=== PATIENT | female | born 1960 | race Caucasian/White ===

== ENCOUNTER → 2017-10-03 | Outpatient (CLI) | payer MEDICARE, MEDICAID | END | disposition home or self-care (01) | LOC: LAB 09:25 | DX: E87.2 Acidosis (principal) ==

== ENCOUNTER → 2017-11-29 | Outpatient (CLI) | payer MEDICARE, MEDICAID ==
[2017-11-29 09:03] LABS: BASO # 0.1 10*3/uL (0.0-0.1); BASO % 0.7 % (0.0-1.0); EOS # 0.5 10*3/uL (0.0-0.4); HEMATOCRIT 41.9 % (37.0-47.0); HEMOGLOBIN 12.2 g/dl (12.0-16.0); LYMPH # 2.4 10*3/uL (1.3-4.4); LYMPH % 25.4 % (27.0-41.0); MEAN CELL VOLUME 90.9 fl (81.0-99.0); MEAN CORPUSCULAR HGB 26.5 pg (27.0-31.0); MEAN CORPUSCULAR HGB CONC 29.1 g/dl (33.0-37.0); MEAN PLATELET VOLUME 9.5 fl (9.6-12.3); MONO # 0.7 10*3/uL (0.1-1.0); MONO % 6.8 % (3.0-9.0); NEUT # 5.8 10*3/uL (2.3-7.9); NEUT % 61.6 % (47.0-73.0); PLATELET COUNT AUTOMATED 352 10*3/uL (130-400); RED BLOOD COUNT 4.61 10*6/uL (4.10-5.10); RED CELL DISTRI WIDTH 13.8 % (0-14.5); WHITE BLOOD COUNT 9.5 10*3/uL (4.8-10.8)
[2017-11-29 09:10] LABS: BILIRUBIN NEGATIVE (NEGATIVE); BLOOD 3+ (NEGATIVE); CLARITY SL CLOUDY (CLEAR); COLOR YELLOW (YELLOW); GLUCOSE 3+ (NEGATIVE); KETONE NEGATIVE (NEGATIVE); LEUKO ESTERASE 1+ (NEGATIVE); NITRITE NEGATIVE (NEGATIVE); PH 5.5 (5.0-9.0); SPECIFIC GRAVITY 1.015 (1.005-1.030); UROBILINOGEN 0.2 E.U./dl (0.2-1.0)
[2017-11-29 09:25] LABS: BACTERIA 3+; RBC TNTC rbc/hpf (0-2)
[2017-11-29 09:26] LABS: ALBUMIN 3.5 gm/dl (3.1-4.5); BUN 27 mg/dl (7-24); CHLORIDE 105 mmol/L (98-107); PHOSPHOROUS 3.7 mg/dL (2.5-4.9); SODIUM 138 mmol/L (136-145)
[2017-11-29 09:27] LABS: CREATININE 1.12 mg/dL (0.55-1.02)
[2017-11-30 11:06] LABS: CREATININE,URINE 45.4 mg/dL (Not Estab.); MICRO ALBUMIN/CRE RATIO 33.9 (0.0-30.0)
== END | disposition home or self-care (01) ==
LOC: LAB 08:09
PROVIDERS: Internal Medicine Nephrology
DX: N18.3 Chronic kidney disease, stage 3 (moderate) (principal); E87.2 Acidosis; E55.9 Vitamin D deficiency, unspecified

== ENCOUNTER → 2018-02-28 | Outpatient (CLI) | payer MEDICARE, MEDICAID ==
[2018-02-28 09:47] LABS: BASO # 0.1 10*3/uL (0.0-0.1); BASO % 0.7 % (0.0-1.0); EOS # 0.4 10*3/uL (0.0-0.4); HEMATOCRIT 40.1 % (37.0-47.0); HEMOGLOBIN 11.8 g/dl (12.0-16.0); LYMPH # 2.8 10*3/uL (1.3-4.4); MEAN CELL VOLUME 91.3 fl (81.0-99.0); MEAN CORPUSCULAR HGB 26.9 pg (27.0-31.0); MEAN CORPUSCULAR HGB CONC 29.4 g/dl (33.0-37.0); MEAN PLATELET VOLUME 9.9 fl (9.6-12.3); MONO # 0.7 10*3/uL (0.1-1.0); MONO % 6.8 % (3.0-9.0); NEUT # 6.3 10*3/uL (2.3-7.9); PLATELET COUNT AUTOMATED 254 10*3/uL (130-400); RED BLOOD COUNT 4.39 10*6/uL (4.10-5.10); RED CELL DISTRI WIDTH 14.3 % (0-14.5); WHITE BLOOD COUNT 10.3 10*3/uL (4.8-10.8)
[2018-02-28 09:59] LABS: BILIRUBIN NEGATIVE (NEGATIVE); BLOOD 3+ (NEGATIVE); CLARITY SL CLOUDY (CLEAR); COLOR YELLOW (YELLOW); GLUCOSE 2+ (NEGATIVE); KETONE NEGATIVE (NEGATIVE); LEUKO ESTERASE NEGATIVE (NEGATIVE); NITRITE NEGATIVE (NEGATIVE); PH 5.5 (5.0-9.0); UROBILINOGEN 0.2 E.U./dl (0.2-1.0)
[2018-02-28 10:14] LABS: BACTERIA 1+; EPITHELIAL CELLS 16-20; RBC TNTC rbc/hpf (0-2)
[2018-02-28 10:41] LABS: ALBUMIN 3.6 gm/dl (3.1-4.5); CREATININE 1.21 mg/dL (0.55-1.02); TOTAL PROTEIN 7.5 gm/dL (6.4-8.2)
== END | disposition home or self-care (01) ==
LOC: LAB 09:15 → CT 10:00
PROVIDERS: Urology
DX: I25.10 Atherosclerotic heart disease of native coronary artery without angina pectoris (principal); R31.9 Hematuria, unspecified; I51.7 Cardiomegaly; N28.9 Disorder of kidney and ureter, unspecified

== ENCOUNTER → 2018-05-08 | Outpatient (CLI) | payer MEDICARE, MEDICAID | END | disposition home or self-care (01) | LOC: RAD 09:55 | DX: N20.0 Calculus of kidney (principal); Z96.0 Presence of urogenital implants ==

== ENCOUNTER → 2018-05-15 | Outpatient (CLI) | payer MEDICARE, MEDICAID | END | disposition home or self-care (01) | LOC: CT 12:58 | DX: N20.0 Calculus of kidney (principal); K80.20 Calculus of gallbladder without cholecystitis without obstruction; K57.30 Diverticulosis of large intestine without perforation or abscess without bleeding; N26.1 Atrophy of kidney (terminal) ==

== ENCOUNTER → 2018-05-28 | Outpatient (CLI) | payer MEDICARE, MEDICAID | END | disposition home or self-care (01) | LOC: RAD 09:52 | DX: N20.0 Calculus of kidney (principal) ==

== ENCOUNTER → 2018-06-06 | Outpatient (CLI) | payer MEDICARE, MEDICAID ==
[2018-06-06 08:37] LABS: BILIRUBIN NEGATIVE (NEGATIVE); BLOOD TRACE-INTACT (NEGATIVE); CLARITY CLOUDY (CLEAR); COLOR YELLOW (YELLOW); GLUCOSE 3+ (NEGATIVE); KETONE TRACE (NEGATIVE); LEUKO ESTERASE 1+ (NEGATIVE); NITRITE NEGATIVE (NEGATIVE); PH 5.5 (5.0-9.0); UROBILINOGEN 0.2 E.U./dl (0.2-1.0)
[2018-06-06 08:48] LABS: BACTERIA 4+; WBC TNTC wbc/hpf (0-5)
[2018-06-06 08:49] LABS: BASO % 0.2 % (0.0-1.0); EOS # 0.1 10*3/uL (0.0-0.4); EOS % 1.1 % (1.0-4.0); HEMATOCRIT 36.2 % (37.0-47.0); HEMOGLOBIN 10.5 g/dl (12.0-16.0); LYMPH # 2.2 10*3/uL (1.3-4.4); LYMPH % 17.2 % (27.0-41.0); MEAN CELL VOLUME 88.9 fl (81.0-99.0); MEAN CORPUSCULAR HGB 25.8 pg (27.0-31.0); MEAN PLATELET VOLUME 9.2 fl (9.6-12.3); MONO # 0.5 10*3/uL (0.1-1.0); MONO % 4.2 % (3.0-9.0); NEUT # 9.8 10*3/uL (2.3-7.9); NEUT % 76.3 % (47.0-73.0); PLATELET COUNT AUTOMATED 409 10*3/uL (130-400); RED BLOOD COUNT 4.07 10*6/uL (4.10-5.10); RED CELL DISTRI WIDTH 14.3 % (0-14.5); WHITE BLOOD COUNT 12.9 10*3/uL (4.8-10.8)
[2018-06-06 09:15] LABS: ALBUMIN 2.8 gm/dl (3.1-4.5); CREATININE 1.64 mg/dL (0.55-1.02); POTASSIUM 4.5 mmol/L (3.5-5.1); THYROXINE (T4) TOTAL 9.2 ug/dl (4.8-13.9); TOTAL PROTEIN 7.4 gm/dL (6.4-8.2)
[2018-06-17 20:10] LABS: BUSHITE 0.01 ratio (0.00-3.00); CALCIUM OXALATE 2.66 ratio (0.00-6.00); CITRIC ACID (CITRATE) 51 mg/24 hr (320-1240); CREATININE, URINE 1048.8 mg/24 hr (800.0-1800.0); CREATININE, URINE 55.2 mg/dL (Not Estab.); MAGNESIUM, URINE 2.4 mg/dL (Not Estab.); MONOSODIUM URATE 1.12 ratio (0.00-4.00); OSMOLALITY, URINE 576 (300-900); SODIUM, URINE 165 (39-258); SODIUM, URINE 87 mmol/L (Not Estab.); STRUVITE 0.01 ratio (0.00-1.00); pH 24 HR URINE 5.2 (.)
== END | disposition home or self-care (01) ==
LOC: LAB 07:50
PROVIDERS: Nurse Practitioner Family
DX: N20.0 Calculus of kidney (principal)

== ENCOUNTER → 2018-06-10 | Outpatient (CLI) | payer MEDICARE, MEDICAID | END | disposition home or self-care (01) | LOC: US 12:41 | DX: N20.0 Calculus of kidney (principal); N32.89 Other specified disorders of bladder ==

== ENCOUNTER → 2018-09-24 | Outpatient (CLI) | payer MEDICARE, MEDICAID ==
[~2018-09-24] MED LIST: ACCU-CHEK AVIV1 EACH MC; ALLOPURINOL100 MG PO; CETIRIZINE HYDR10 MG PO; GLYBURIDE5 MG PO; GOOD NEIGHBOR150 MG PO; JARDIANCE25 MG PO; LISINOPRIL5 MG PO; METFORMIN HYDR500 MG PO; SIMVASTATIN10 MG PO; TRULICITY1.5 MG/0.5 SC
== END | disposition home or self-care (01) ==
LOC: CT 15:46
DX: N20.0 Calculus of kidney (principal); Z96.0 Presence of urogenital implants

== ENCOUNTER → 2018-10-04 | Outpatient (CLI) | payer MEDICARE, MEDICAID ==
[2018-10-04 10:33] LABS: BILIRUBIN NEGATIVE (NEGATIVE); BLOOD 3+ (NEGATIVE); CLARITY SL CLOUDY (CLEAR); COLOR YELLOW (YELLOW); GLUCOSE 2+ (NEGATIVE); KETONE NEGATIVE (NEGATIVE); LEUKO ESTERASE TRACE (NEGATIVE); NITRITE NEGATIVE (NEGATIVE); PH 5.5 (5.0-9.0); SPECIFIC GRAVITY <= 1.005 (1.005-1.030); UROBILINOGEN 0.2 E.U./dl (0.2-1.0)
[2018-10-04 10:35] LABS: BASO % 0.3 % (0.0-1.0); EOS # 0.4 10*3/uL (0.0-0.4); EOS % 4.3 % (1.0-4.0); HEMATOCRIT 29.9 % (37.0-47.0); HEMOGLOBIN 8.3 g/dl (12.0-16.0); LYMPH # 1.9 10*3/uL (1.3-4.4); LYMPH % 20.2 % (27.0-41.0); MEAN CELL VOLUME 86.2 fl (81.0-99.0); MEAN CORPUSCULAR HGB 23.9 pg (27.0-31.0); MEAN CORPUSCULAR HGB CONC 27.8 g/dl (33.0-37.0); MEAN PLATELET VOLUME 8.7 fl (9.6-12.3); MONO # 0.6 10*3/uL (0.1-1.0); MONO % 6.8 % (3.0-9.0); NEUT # 6.3 10*3/uL (2.3-7.9); NEUT % 67.7 % (47.0-73.0); PLATELET COUNT AUTOMATED 451 10*3/uL (130-400); RED BLOOD COUNT 3.47 10*6/uL (4.10-5.10); RED CELL DISTRI WIDTH 15.8 % (0-14.5); WHITE BLOOD COUNT 9.2 10*3/uL (4.8-10.8)
[2018-10-04 10:43] LABS: CREATININE 1.72 mg/dL (0.55-1.02); PHOSPHOROUS 4.1 mg/dL (2.5-4.9); POTASSIUM 4.5 mmol/L (3.5-5.1)
[2018-10-04 11:02] LABS: PTH INTACT 49.4 pg/mL (18.5-88.0); VITAMIN D, 25-HYDROXY 26.7 ng/mL (30-100)
[2018-10-04 11:04] LABS: RBC TNTC rbc/hpf (0-2); WBC 51-100 wbc/hpf (0-5)
[2018-10-04 11:05] LABS: BACTERIA 1+
[2018-10-05 10:05] LABS: CREATININE,URINE 42.7 mg/dL (Not Estab.); MICRO ALBUMIN/CRE RATIO 247.8 (0.0-30.0)
== END | disposition home or self-care (01) ==
LOC: LAB 09:53
PROVIDERS: Internal Medicine Nephrology
DX: N18.3 Chronic kidney disease, stage 3 (moderate) (principal); E87.2 Acidosis; E55.9 Vitamin D deficiency, unspecified

== ENCOUNTER → 2018-11-14 | Outpatient (CLI) | payer MEDICARE, MEDICAID | END | disposition home or self-care (01) | LOC: US 10:20 | DX: N20.0 Calculus of kidney (principal) ==

== ENCOUNTER → 2018-12-04 | Outpatient (CLI) | payer MEDICARE, MEDICAID | END | disposition home or self-care (01) | LOC: CT 12:47 | DX: N20.0 Calculus of kidney (principal); K80.20 Calculus of gallbladder without cholecystitis without obstruction; N28.89 Other specified disorders of kidney and ureter; K82.8 Other specified diseases of gallbladder; Z96.0 Presence of urogenital implants ==

== ENCOUNTER → 2019-07-17 | Outpatient (CLI) | payer MEDICARE, MEDICAID | END | disposition home or self-care (01) | LOC: CT 10:38 | DX: N20.0 Calculus of kidney (principal); K80.20 Calculus of gallbladder without cholecystitis without obstruction ==

== ENCOUNTER → 2020-01-27 | Outpatient (CLI) | payer MEDICARE, MEDICAID ==
[2020-01-27 08:29] LABS: BASO # 0.1 10*3/uL (0.0-0.1); BASO % 0.5 % (0.0-1.0); EOS # 0.5 10*3/uL (0.0-0.4); HEMATOCRIT 37.7 % (37.0-47.0); LYMPH # 2.3 10*3/uL (1.3-4.4); LYMPH % 25.2 % (27.0-41.0); MEAN CELL VOLUME 93.5 fl (81.0-99.0); MEAN PLATELET VOLUME 10.2 fl (9.6-12.3); MONO # 0.5 10*3/uL (0.1-1.0); MONO % 5.7 % (3.0-9.0); NEUT # 5.8 10*3/uL (2.3-7.9); NEUT % 63.2 % (47.0-73.0); PLATELET COUNT AUTOMATED 302 10*3/uL (130-400); RED BLOOD COUNT 4.03 10*6/uL (4.10-5.10); WHITE BLOOD COUNT 9.2 10*3/uL (4.8-10.8)
[2020-01-27 09:07] LABS: URIC ACID 4.8 mg/dL (2.6-6.0)
[2020-01-27 09:12] LABS: BILIRUBIN NEGATIVE (NEGATIVE); CLARITY CLEAR (CLEAR); COLOR YELLOW (YELLOW); GLUCOSE 2+ (NEGATIVE); KETONE NEGATIVE (NEGATIVE)
[2020-01-27 09:12] LABS: ALBUMIN 3.3 gm/dl (3.1-4.5); CREATININE 1.72 mg/dL (0.55-1.02); TOTAL PROTEIN 6.8 gm/dL (6.4-8.2)
[2020-01-27 09:13] LABS: BACTERIA 1+; BLOOD TRACE-LYSED (NEGATIVE); LEUKO ESTERASE NEGATIVE (NEGATIVE); NITRITE NEGATIVE (NEGATIVE); SPECIFIC GRAVITY 1.015 (1.005-1.030); UROBILINOGEN 0.2 E.U./dl (0.2-1.0)
[2020-01-27 09:48] LABS: PTH INTACT 48.1 pg/mL (18.5-88.0); VITAMIN D, 25-HYDROXY 41.3 ng/mL (30-100)
== END | disposition home or self-care (01) ==
LOC: LAB 07:17
PROVIDERS: Internal Medicine Nephrology; Nurse Practitioner Family
DX: I12.9 Hypertensive chronic kidney disease with stage 1 through stage 4 chronic kidney disease, or unspecified chronic kidney disease (principal); N18.3 Chronic kidney disease, stage 3 (moderate); D64.9 Anemia, unspecified; E13.22 Other specified diabetes mellitus with diabetic chronic kidney disease; E55.9 Vitamin D deficiency, unspecified; N20.0 Calculus of kidney; E78.5 Hyperlipidemia, unspecified; Z79.4 Long term (current) use of insulin

== ENCOUNTER → 2023-11-01 | Outpatient (CLI) | payer MEDICARE, MEDICAID | END | disposition home or self-care (01) | LOC: MAMMO 09:33 | PROVIDERS: ATTEND Nurse Practitioner Family | DX: N63.24 Unspecified lump in the left breast, lower inner quadrant (principal) ==

== ENCOUNTER → 2024-02-05 | Outpatient (CLI) | payer MEDICARE, MEDICAID ==
[~2024-02-05] MED LIST changes: +GLIPIZIDE10 M2 PO; +LANTUS100 UNIT/1 SQ; +ROSUVASTATIN CA10 MG PO
== END | disposition home or self-care (01) ==
LOC: US 09:36
PROVIDERS: ATTEND Nurse Practitioner Family
DX: N63.24 Unspecified lump in the left breast, lower inner quadrant (principal); R92.8 Other abnormal and inconclusive findings on diagnostic imaging of breast

== ENCOUNTER → 2024-02-11 | Day surgery (SDC) | payer MEDICARE, MEDICAID ==
[~2024-02-11] VITALS: Ht 157.4 cm; Wt 104.3 kg
[~2024-02-11] MED LIST changes: +Lidocaine Hydrochloride 2% 10 ML AMP IM ONE; +Midazolam Hydrochloride 2 MG/2 ML VIAL IV ONE; +PROPOFOL 200 MG/20 ML VIAL IV ONE; +Phenylephrine Hydrochloride 1 MG/10 ML SYRINGE IV ONE; +SODIUM CHLORIDE 0.9% 1,000 ML IV ONE
[2024-02-11 09:30] VITALS: BP 84/43
[2024-02-11 09:45] VITALS: BP 105/56
[2024-02-11 10:00] VITALS: BP 113/58
== END | disposition home or self-care (01) ==
LOC: SDC 02-07 08:45
PROVIDERS: ATTEND Surgery
DX: Z12.11 Encounter for screening for malignant neoplasm of colon (principal); K64.8 Other hemorrhoids; I12.9 Hypertensive chronic kidney disease with stage 1 through stage 4 chronic kidney disease, or unspecified chronic kidney disease; E11.22 Type 2 diabetes mellitus with diabetic chronic kidney disease; N18.9 Chronic kidney disease, unspecified; E11.319 Type 2 diabetes mellitus with unspecified diabetic retinopathy without macular edema; E78.00 Pure hypercholesterolemia, unspecified; Z86.010 Personal history of colon polyps; Z98.41 Cataract extraction status, right eye; Z98.42 Cataract extraction status, left eye; Z98.890 Other specified postprocedural states; Z79.4 Long term (current) use of insulin; Z79.899 Other long term (current) drug therapy; Z83.3 Family history of diabetes mellitus; Z82.49 Family history of ischemic heart disease and other diseases of the circulatory system
CPT/HCPCS: 00812; G0105

== ENCOUNTER 2024-12-24 02:42 | Emergency (ER) | payer MEDICARE, MEDICAID ==
[~2024-12-24] VITALS: Ht 167.6 cm; Wt 121.1 kg
[~2024-12-24 02:42] MED LIST changes: -Lidocaine Hydrochloride 2% 10 ML AMP IM ONE; -Midazolam Hydrochloride 2 MG/2 ML VIAL IV ONE; -PROPOFOL 200 MG/20 ML VIAL IV ONE; -Phenylephrine Hydrochloride 1 MG/10 ML SYRINGE IV ONE; -SODIUM CHLORIDE 0.9% 1,000 ML IV ONE
[2024-12-24] MEDS ORDERED: ASPIRIN, CHEWABLE 81 MG TAB PO ONE (02:55)
[2024-12-24] MEDS ORDERED: SODIUM BICARBO650 MG PO (02:57)
[2024-12-24] MEDS ORDERED: PIOGLITAZONE HC15 MG PO (02:57)
[2024-12-24] MEDS ORDERED: VITAMIN D250 MCG PO (02:58)
[2024-12-24] MEDS ORDERED: ASPIRIN CHEWABL81 MG PO (02:58)
[2024-12-24] MEDS ORDERED: IRON325 M1 PO (02:58)
[2024-12-24] MEDS ORDERED: FOLIC ACID0.8 M1 PO (02:59)
[2024-12-24] MEDS ORDERED: FISH OIL 1,201200 MG PO (02:59)
[2024-12-24] MEDS ORDERED: B12-FOLIC ACID1 EACH PO (03:00)
[2024-12-24 03:13] LABS: BASO % 0.2 % (0.0-1.0); EOS # 0.1 10*3/uL (0.0-0.4); EOS % 0.8 % (1.0-4.0); HEMATOCRIT 40.5 % (37.0-47.0); MEAN CORPUSCULAR HGB 30.3 pg (27.0-31.0); MEAN CORPUSCULAR HGB CONC 30.6 g/dl (33.0-37.0); MEAN PLATELET VOLUME 9.8 fl (9.6-12.3); MONO # 1.3 10*3/uL (0.1-1.0); MONO % 7.7 % (3.0-9.0); NEUT % 82.8 % (47.0-73.0); PLATELET COUNT AUTOMATED 232 10*3/uL (130-400); RED BLOOD COUNT 4.09 10*6/uL (4.10-5.10); RED CELL DISTRI WIDTH 12.6 % (0-14.5); WHITE BLOOD COUNT 16.9 10*3/uL (4.8-10.8)
[2024-12-24 03:36] LABS: POTASSIUM 5.1 mmol/L (3.4-5.1); TOTAL PROTEIN 7.1 gm/dL (6.0-8.0)
[2024-12-24] MEDS ORDERED: Dicyclomine Hydrochloride 20 MG/10 ML OSYR PO STA (03:53)
[2024-12-24] MEDS ORDERED: MG-AL HYDROXIDE/SIMETICONE 30 ML UDC PO STA (03:53)
[2024-12-24] MEDS ORDERED: Lidocaine Hydrochloride 15 ML UDC PO STA (03:53)
[2024-12-24] MEDS ORDERED: Pantoprazole Sodium 20 MG TAB PO ONE ×2 (04:45)
[2024-12-24] MEDS ORDERED: OMEPRAZOLE40 MG PO (05:22)
== END 2024-12-24 05:30 | disposition home or self-care (01) ==
LOC: ED 02:42
PROVIDERS: Internal Medicine
DX: K21.9 Gastro-esophageal reflux disease without esophagitis (principal); R07.89 Other chest pain; I12.9 Hypertensive chronic kidney disease with stage 1 through stage 4 chronic kidney disease, or unspecified chronic kidney disease; E11.22 Type 2 diabetes mellitus with diabetic chronic kidney disease; N18.9 Chronic kidney disease, unspecified; N17.9 Acute kidney failure, unspecified; E11.65 Type 2 diabetes mellitus with hyperglycemia; D72.829 Elevated white blood cell count, unspecified; Z79.82 Long term (current) use of aspirin; Z79.4 Long term (current) use of insulin; Z79.899 Other long term (current) drug therapy; Z98.890 Other specified postprocedural states

== ENCOUNTER 2025-01-06 17:02 | Observation (INO) | payer MEDICARE, MEDICAID ==
[~2025-01-06] VITALS: Ht 160 cm; Wt 110.2 kg
[~2025-01-06 17:02] MED LIST changes: +ASPIRIN CHEWABL81 MG PO; +B12-FOLIC ACID1 EACH PO; +FISH OIL 1,201200 MG PO; +FOLIC ACID0.8 M1 PO; +IRON325 M1 PO; +OMEPRAZOLE40 MG PO; +PIOGLITAZONE HC15 MG PO; +SODIUM BICARBO650 MG PO; +VITAMIN D250 MCG PO
[2025-01-06 17:28] VITALS: BP 152/49
[2025-01-06] MEDS ORDERED: ACETAMINOPHEN 325 MG TAB PO ONE ×2 (18:10)
[2025-01-06] MEDS ORDERED: Lidocaine Hydrochloride 15 ML UDC PO ONE (18:15)
[2025-01-06] MEDS ORDERED: MG-AL HYDROXIDE/SIMETICONE 30 ML UDC PO ONE (18:15)
[2025-01-06 18:24] LABS: BASO % 0.2 % (0.0-1.0); EOS % 0.1 % (1.0-4.0); HEMATOCRIT 37.3 % (37.0-47.0); MEAN CELL VOLUME 97.6 fl (81.0-99.0); MEAN CORPUSCULAR HGB 30.6 pg (27.0-31.0); MEAN CORPUSCULAR HGB CONC 31.4 g/dl (33.0-37.0); MEAN PLATELET VOLUME 9.5 fl (9.6-12.3); MONO # 1.4 10*3/uL (0.1-1.0); MONO % 8.5 % (3.0-9.0); NEUT # 14.4 10*3/uL (2.3-7.9); NEUT % 86.3 % (47.0-73.0); PLATELET COUNT AUTOMATED 423 10*3/uL (130-400); RED BLOOD COUNT 3.82 10*6/uL (4.10-5.10); RED CELL DISTRI WIDTH 13.2 % (0-14.5); WHITE BLOOD COUNT 16.7 10*3/uL (4.8-10.8)
[2025-01-06 18:37] LABS: ACT PARTIAL THROMBO TIME 28.9 SECONDS (20.0-32.1)
[2025-01-06 19:19] LABS: POTASSIUM 4.7 mmol/L (3.4-5.1); TOTAL PROTEIN 7.3 gm/dL (6.0-8.0)
[2025-01-06 19:20] LABS: BILIRUBIN Negative (Negative); BLOOD Trace-Lysed (Negative); CLARITY Clear (Clear); COLOR Yellow (Yellow); GLUCOSE 3+ (Negative); KETONE Trace (Negative); LEUKO ESTERASE Trace (Negative); NITRITE Negative (Negative); PH 5.5 (4.5-8.0); SPECIFIC GRAVITY >= 1.030 (1.001-1.030)
[2025-01-06 19:29] VITALS: BP 103/66
[2025-01-06 19:29] LABS: BACTERIA 1+; WBC 41-50 wbc/hpf (0-5); YEAST 1+
[2025-01-07] VITALS: BP 109/64
[2025-01-07 03:53] VITALS: BP 130/64
[2025-01-07 07:58] VITALS: BP 123/60
[2025-01-07] MEDS ORDERED: cefTRIAXone Sodium 1 GM/10 ML SYR IV ONE (08:50)
[2025-01-07] MEDS ORDERED: BISACODYL 5 MG TAB PO PRN (12:20)
[2025-01-07] MEDS ORDERED: BISACODYL 10 MG SUPP R PRN (12:20)
[2025-01-07] MEDS ORDERED: Magnesium Hydroxide 30 ML UDC PO PRN (12:20)
[2025-01-07] MEDS ORDERED: ACETAMINOPHEN 650 MG SUPP R PRN (12:20)
[2025-01-07] MEDS ORDERED: ACETAMINOPHEN 325 MG TAB PO PRN (12:20)
[2025-01-07] MEDS ORDERED: Acetaminophen/Hydrocodone 5 MG/325 MG TABLET PO PRN (12:20)
[2025-01-07 13:06] LABS: BASO % 0.2 % (0.0-1.0); EOS % 0.2 % (1.0-4.0); HEMATOCRIT 34.8 % (37.0-47.0); MEAN CELL VOLUME 96.1 fl (81.0-99.0); MEAN CORPUSCULAR HGB 30.1 pg (27.0-31.0); MEAN CORPUSCULAR HGB CONC 31.3 g/dl (33.0-37.0); MEAN PLATELET VOLUME 9.2 fl (9.6-12.3); MONO # 1.5 10*3/uL (0.1-1.0); MONO % 9.1 % (3.0-9.0); NEUT # 13.3 10*3/uL (2.3-7.9); PLATELET COUNT AUTOMATED 408 10*3/uL (130-400); RED BLOOD COUNT 3.62 10*6/uL (4.10-5.10); RED CELL DISTRI WIDTH 13.4 % (0-14.5); WHITE BLOOD COUNT 16.2 10*3/uL (4.8-10.8)
[2025-01-07 13:14] LABS: POTASSIUM 4.8 mmol/L (3.4-5.1); TOTAL PROTEIN 7.2 gm/dL (6.0-8.0)
[2025-01-07 14:00] VITALS: BP 150/57
[2025-01-07 18:30] VITALS: BP 122/44
[2025-01-07] MEDS ORDERED: DEXTROSE 50% 25 GM/50 ML VIAL IV PRN (19:15)
[2025-01-07] MEDS ORDERED: Insulin Glargine, Recombinan 1 UNIT/0.01 ML SC SCH (22:00)
[2025-01-07] MEDS ORDERED: INSULIN LISPRO 1 UNIT/0.01 ML SQ SCH (22:00)
[2025-01-07] MEDS ORDERED: ALLOPURINOL 100 MG TAB PO SCH (22:00)
[2025-01-07 23:05] VITALS: BP 114/55
[2025-01-08] MEDS ORDERED: OMEPRAZOLE 20 MG CAP PO SCH (06:00)
[2025-01-08] MEDS ORDERED: Rosuvastatin Calcium 10 MG TABLET PO SCH (10:00)
[2025-01-08] MEDS ORDERED: LISINOPRIL 5 MG TAB PO SCH (10:00)
[2025-01-08] MEDS ORDERED: EMPAGLIFLOZIN 25 MG TABLET PO SCH (10:00)
== END 2025-01-07 23:41 | disposition short-term general hospital (02) ==
LOC: ED 17:02 → EDHOLD 01-07 09:58
PROVIDERS: Emergency Medicine; ADMIT Internal Medicine; ATTEND Internal Medicine
DX: I30.9 Acute pericarditis, unspecified (principal); I31.39 Other pericardial effusion (noninflammatory); R07.89 Other chest pain; N17.0 Acute kidney failure with tubular necrosis; D72.828 Other elevated white blood cell count; D75.839 Thrombocytosis, unspecified; R79.82 Elevated C-reactive protein (CRP); K21.9 Gastro-esophageal reflux disease without esophagitis; I10 Essential (primary) hypertension; E11.9 Type 2 diabetes mellitus without complications; Z79.4 Long term (current) use of insulin; M10.9 Gout, unspecified; Z79.899 Other long term (current) drug therapy